=== PATIENT | female | born 1970 | race Caucasian/White ===

== ENCOUNTER 2021-06-19 17:44 | Observation (INO) | payer OTHER ==
[~2021-06-19] VITALS: Ht 170.2 cm; Wt 77.0 kg
[2021-06-19 18:20] LABS: BASOPHILS ABSOLUTE AUTO 0.02 K/mm3 (0.00-0.23); BASOPHILS PERCENT AUTO 0 % (0-2); EOSINOPHILS ABSOLUTE AUTO 0.01 K/mm3 (0.00-0.68); EOSINOPHILS PERCENT AUTO 0 % (0-6); Hematocrit 34.4 % (33.0-51.0); Hemoglobin 11.7 g/dL (11.5-16.0); IMMATURE GRAN ABSOLUTE AUTO 0.13 K/mm3 (0.00-0.10); IMMATURE GRAN PERCENT AUTO 1 % (0-1); LYMPHOCYTES ABSOLUTE AUTO 0.82 K/mm3 (0.84-5.20); LYMPHOCYTES PERCENT AUTO 8 % (21-46); MONOCYTES ABSOLUTE AUTO 0.54 K/mm3 (0.16-1.47); MONOCYTES PERCENT AUTO 5 % (4-13); Mean Corpuscular Volume 91 fL (80-100); Mean Platelet Volume 10.5 fL (9.1-12.4); NEUTROPHILS ABSOLUTE AUTO 9.33 K/mm3 (1.96-9.15); NEUTROPHILS PERCENT AUTO 86 % (41-73); Platelet Count 214 K/mm3 (150-400); RDW Coefficient Variation 12.3 % (11.7-14.2); RDW Standard Deviation 41.1 fL (35.1-46.3); Red Blood Cell Count 3.77 M/mm3 (3.80-5.20); White Blood Cell Count 10.85 K/mm3 (4.00-11.30)
[2021-06-19 18:43] LABS: International Normalized Ratio 1.04; Prothrombin Time Results 10.9 Sec (9.7-11.5)
[2021-06-19 18:55] LABS: Alanine Aminotransfer (ALT/SGP 72 U/L (12-78); Albumin, Blood 2.1 g/dL (3.4-5.0); Albumin/Globulin Ratio 0.5 (0.8-1.8); Alk Phos 47 U/L (50-136); Anion Gap 5 mmol/L (6-16); Aspartate Aminotrans (AST/SGOT 18 U/L (12-37); Bilirubin, Total 0.5 mg/dL (0.1-1.0); Blood Urea Nitrogen 11 mg/dL (8-24); Bun/Creatinine Ratio 15.2 (12.0-20.0); CO2, Blood 29 mmol/L (21-32); Calcium, Blood 8.5 mg/dL (8.5-10.1); Chloride, Blood 105 mmol/L (98-108); Creatinine, Blood 0.72 mg/dL (0.40-1.00); Globulin, Blood 4.2 g/dL (2.2-4.0); Glomerular Filtration Rate >60 (60-); Glucose, Blood 103 mg/dL (70-99); Potassium, Blood 3.3 mmol/L (3.5-5.5); Sodium, Blood 139 mmol/L (136-145); Total Protein, Blood 6.3 g/dL (6.4-8.2)
[2021-06-19] MEDS ORDERED: PRED5 PO (21:36)
[2021-06-19] MEDS ORDERED: DEXA4 PO (21:47)
--- NOTE | 2021-06-19 23:28 | NUR ---
transfer report from [facility] on 50 year old Female with covid 19 on home oxygen steroid doxycyline & intervection who was at primary care with co bilat le pain US shows bilat DVT & sent to ER for CT scan shows bilat PE's. SOB with exertion on 2-3 l nc for covid 19 & started on anticoag in ER. Will have bioxx, RT called & tele monitor. Await admission
[2021-06-20] MEDS ORDERED: DOXY100 PO (01:16)
[2021-06-20 05:24] LABS: BASOPHILS ABSOLUTE AUTO 0.03 K/mm3 (0.00-0.23); BASOPHILS PERCENT AUTO 0 % (0-2); EOSINOPHILS ABSOLUTE AUTO 0.01 K/mm3 (0.00-0.68); EOSINOPHILS PERCENT AUTO 0 % (0-6); Hematocrit 32.9 % (33.0-51.0); Hemoglobin 11.2 g/dL (11.5-16.0); IMMATURE GRAN ABSOLUTE AUTO 0.12 K/mm3 (0.00-0.10); IMMATURE GRAN PERCENT AUTO 1 % (0-1); LYMPHOCYTES ABSOLUTE AUTO 0.66 K/mm3 (0.84-5.20); LYMPHOCYTES PERCENT AUTO 5 % (21-46); MONOCYTES ABSOLUTE AUTO 0.52 K/mm3 (0.16-1.47); MONOCYTES PERCENT AUTO 4 % (4-13); Mean Corpuscular HGB 31.3 pg (26.0-34.0); Mean Corpuscular Volume 92 fL (80-100); Mean Platelet Volume 10.7 fL (9.1-12.4); NEUTROPHILS ABSOLUTE AUTO 12.38 K/mm3 (1.96-9.15); NEUTROPHILS PERCENT AUTO 90 % (41-73); Platelet Count 216 K/mm3 (150-400); RDW Coefficient Variation 12.5 % (11.7-14.2); RDW Standard Deviation 41.3 fL (35.1-46.3); Red Blood Cell Count 3.58 M/mm3 (3.80-5.20); White Blood Cell Count 13.72 K/mm3 (4.00-11.30)
[2021-06-20 05:47] LABS: Alanine Aminotransfer (ALT/SGP 66 U/L (12-78); Albumin, Blood 1.9 g/dL (3.4-5.0); Albumin/Globulin Ratio 0.4 (0.8-1.8); Alk Phos 46 U/L (50-136); Anion Gap 4 mmol/L (6-16); Aspartate Aminotrans (AST/SGOT 19 U/L (12-37); Bilirubin, Total 0.5 mg/dL (0.1-1.0); Blood Urea Nitrogen 10 mg/dL (8-24); Bun/Creatinine Ratio 13.6 (12.0-20.0); CO2, Blood 26 mmol/L (21-32); Calcium, Blood 8.9 mg/dL (8.5-10.1); Chloride, Blood 109 mmol/L (98-108); Creatinine, Blood 0.73 mg/dL (0.40-1.00); Globulin, Blood 4.3 g/dL (2.2-4.0); Glomerular Filtration Rate >60 (60-); Glucose, Blood 148 mg/dL (70-99); Potassium, Blood 4.7 mmol/L (3.5-5.5); Sodium, Blood 139 mmol/L (136-145); Total Protein, Blood 6.2 g/dL (6.4-8.2)
--- NOTE | 2021-06-20 06:45 | NUR ---
50 year old Female with home treatment of covid 19 since Jun 06 admitted for bilat le dvts, bilat pulmonary embolism after having doppler US at [facility] & being sent to [facility] for elevated ddimer & CT pulm angiogram. PT is SOB with exertion used BSC. O2 sats 97% on 2 l NC. Pain with deep inspiration, rt upper chest.
--- NOTE | 2021-06-20 16:00 | NUR ---
PATIENT REMAINS STABLE WITH NO ACUTE CHANGES IN CONDITION THIS SHIFT A&OX4 UP AD POLLY HAD PT/OT THIS AM TOLERATED WELL DOES VERBALIZE SOB/ZAMUDIO O2 MAINTAINED @ 2L NC SATS >92% DENIES PAIN OR DISCOMFORT RESP EVEN/UNLABORED AT REST LS CLEAR THROUGHOUT BILAT LUNG GREENE NO S/S DISTESS NOTED WILL CONT TO MONITOR
--- NOTE | 2021-06-20 21:08 | NUR ---
PT co rt upper chest wall pain rad to rt arm 01/29 & unrelieved by rest or heat. DR Oneal called & 1 x order for 4 mg morphine obtained as well as ultram 50 mg po Q 6 hrs prn chest pain related to PEs. On eliquis anticoag.
--- NOTE | 2021-06-20 23:53 | NUR ---
PT with covid 19 pneumonia & bilat covid 19 related DVT & PEs. Change of shift PT CO 01/29 rt upper chest wall pain, radiated to rt upper arm. PT at rest after active day. Called DR. Chanelle Morales but he said to call hospitalist for RX. Applied kpad to rt chest wall with mild relief. Called DR Oneal for rx to tx PE releted chest pain. Morphine 4 mg with good relief of chestpain. Also gave ultram 50 mg & Pt resting comfortably on 3 l oxygen. Lungs clear but dimished.
--- NOTE | 2021-06-21 06:28 | NUR ---
50 year old with covid 19 pneumonia & covid 19 related bilat PEs multiple & bilat le DVTs. Oxygen 3 l nasal cannula to keep sats greater than 90%. On eliquis to tx PES/DVTS. 1 episode of rt upper chest wall pain relieved by 4 mg iv morphine x 1 & gave 50 mg ultram to prevent return of acute pain. Resting quietly after morphine & ultram given. Worked with PT OT. Has home oxygen set up as prior to admission for covid 19 pneumonia.
--- NOTE | 2021-06-21 16:58 | NUR ---
SHIFT SUMMARY PATIENT IS ALERT AND ORIENTED X4. PATIENT IS PLEASENT AND COOPERATIVE WITH CARE. PATIENT HAS BEEN ON 2LITERS NASAL CANNULA ALL SHIFT AND DESATS WITH ANY ACTIVITY PER PT/OT. PATIENT HAS NO COMPLAINTS OF PAIN, NAUSEA, VOMITTING DURING SHIFT. VITAL SIGNS REVIEWED. WILL CONTINUE TO MONITOR UNTIL SHIFT CHANGE.
--- NOTE | 2021-06-22 04:33 | NUR ---
Pt admitted for covid, but has had it for the past three weeks. Pt has velvet dvt and velvet pe. Pt currently on 3L of O2 via NC. Tolerating well. Pt slightly anxious and lonely. Pt kept company by this nurse and offered reasurance. Pt thankful.
[2021-06-22 07:24] LABS: BASOPHILS ABSOLUTE AUTO 0.02 K/mm3 (0.00-0.23); BASOPHILS PERCENT AUTO 0 % (0-2); EOSINOPHILS ABSOLUTE AUTO 0.04 K/mm3 (0.00-0.68); EOSINOPHILS PERCENT AUTO 0 % (0-6); Hematocrit 33.9 % (33.0-51.0); Hemoglobin 11.2 g/dL (11.5-16.0); IMMATURE GRAN PERCENT AUTO 1 % (0-1); LYMPHOCYTES ABSOLUTE AUTO 1.13 K/mm3 (0.84-5.20); LYMPHOCYTES PERCENT AUTO 11 % (21-46); MONOCYTES ABSOLUTE AUTO 0.78 K/mm3 (0.16-1.47); MONOCYTES PERCENT AUTO 8 % (4-13); Mean Corpuscular Volume 94 fL (80-100); Mean Platelet Volume 11.2 fL (9.1-12.4); NEUTROPHILS PERCENT AUTO 80 % (41-73); Platelet Count 200 K/mm3 (150-400); RDW Coefficient Variation 12.5 % (11.7-14.2); RDW Standard Deviation 42.8 fL (35.1-46.3); Red Blood Cell Count 3.61 M/mm3 (3.80-5.20); White Blood Cell Count 10.17 K/mm3 (4.00-11.30)
[2021-06-22 07:38] LABS: Alanine Aminotransfer (ALT/SGP 47 U/L (12-78); Albumin/Globulin Ratio 0.4 (0.8-1.8); Alk Phos 53 U/L (50-136); Anion Gap 4 mmol/L (6-16); Aspartate Aminotrans (AST/SGOT 15 U/L (12-37); Bilirubin, Total 0.7 mg/dL (0.1-1.0); Blood Urea Nitrogen 13 mg/dL (8-24); CO2, Blood 30 mmol/L (21-32); Calcium, Blood 8.6 mg/dL (8.5-10.1); Chloride, Blood 104 mmol/L (98-108); Creatinine, Blood 0.87 mg/dL (0.40-1.00); Glomerular Filtration Rate >60 (60-); Glucose, Blood 92 mg/dL (70-99); Potassium, Blood 4.1 mmol/L (3.5-5.5); Sodium, Blood 138 mmol/L (136-145)
[2021-06-22] MEDS ORDERED: ELIQUIS5 M2 PO (08:59)
[2021-06-22] MEDS ORDERED: Norco 5-325 Ta1 EACH PO (09:00)
--- NOTE | 2021-06-22 11:01 | NUR ---
Introduction: PT refered by Spiritual Care Team. Assessment: PT presented seated upright in bed, pleasant demeanor. PT was excited to be heading home today. PT was also thanking God for getting her to the hospital in time to save her life. Intervention: PT offered prayer. Outcome: PT receieved prayer. Follow-Up: As needed or requested.
== END 2021-06-22 13:29 | disposition home or self-care (01) ==
LOC: ER 17:44 → MEDS 20:56
PROVIDERS: Emergency Medicine; Family Medicine; ADMIT Internal Medicine
DX: U07.1 COVID-19 (principal); I26.94 Multiple subsegmental thrombotic pulmonary emboli without acute cor pulmonale; J12.82 Pneumonia due to coronavirus disease 2019; I82.403 Acute embolism and thrombosis of unspecified deep veins of lower extremity, bilateral; E87.6 Hypokalemia; Z87.891 Personal history of nicotine dependence
CPT/HCPCS: 36415; 80053; 85025; 85610; 85730; 93005; 93010; 94762; 97110; 97161; 97165; 97530; 97535; 99285-25; A9270; J2270; J7512

== ENCOUNTER → 2021-06-19 | Outpatient (CLI) | payer OTHER ==
[~2021-06-19] MED LIST: DEXA4 PO; DOXY100 PO; ELIQUIS5 M2 PO; Norco 5-325 Ta1 EACH PO; PRED5 PO
== END | disposition home or self-care (01) ==
LOC: LAB SHORT 14:09
DX: R25.2 Cramp and spasm (principal)
CPT/HCPCS: 85379